=== PATIENT | female | born 1960 | race Caucasian/White ===

== ENCOUNTER → 2016-03-18 | Outpatient (CLI) | payer OTHER ==
--- NOTE | 2016-03-18 09:02 | DX ---
PA and Lateral Chest March 18, 2016 Indication: Shortness of breath and cough. Comparison: Two-view chest dated February 23, 2014. Findings: The lungs are clear with mild diffuse peribronchial thickening. No confluent airspace conso lidation, edema, or effusion. Smudgy sclerosis overlies the posterolateral left 5th rib on the PA vie w (new since February 2014). The heart size is normal. Impression: 1. Suspect subacute posterolateral left 5th rib fracture with healing callus. Recommend follow up lef t rib series including PA chest and oblique views and 6 weeks to exclude underlying pulmonary nodule. 2. Mild bronchitis. No pneumonia. Comment: The findings and recommendations were discussed with Dr. Karissa Browne at 8:55 a.m. on 2016.
== END ==
LOC: FIMAGING 07:58
PROVIDERS: ATTEND Emergency Medicine
DX: R93.8 Abnormal findings on diagnostic imaging of other specified body structures (principal); J40 Bronchitis, not specified as acute or chronic

== ENCOUNTER → 2016-05-23 | Outpatient (CLI) | payer OTHER | LOC: FIMAGING 19:52 | PROVIDERS: ATTEND Physician Assistant Medical | DX: R05 Cough (principal) ==

== ENCOUNTER → 2016-06-22 | Outpatient (CLI) | payer OTHER | LOC: FIMAGING 09:30 | PROVIDERS: ATTEND Orthopaedic Surgery | DX: S83.232A Complex tear of medial meniscus, current injury, left knee, initial encounter (principal); M94.262 Chondromalacia, left knee ==

== ENCOUNTER 2016-08-15 06:53 | Day surgery (SDC) | payer OTHER ==
[~2016-08-15 06:53] MED LIST: BUPIVACAINE/EPI 0.5% 30 ML SDV ONE
[2016-08-15] MEDS ORDERED: LIDOCAINE 1% 2 ML INJ ONE (06:58)
[2016-08-15] MEDS ORDERED: MIDAZOLAM 2 MG/2 ML VIAL ONE (07:09)
[2016-08-15] MEDS ORDERED: fentaNYL 100 MCG/2 ML INJ ONE (07:18)
[2016-08-15] MEDS ORDERED: PROPOFOL 200 MG/20 ML VIAL ONE (07:18)
[2016-08-15] MEDS ORDERED: METOCLOPRAMIDE 10 MG/2 ML VIAL ONE (07:19)
[2016-08-15] MEDS ORDERED: KETOROLAC 30 MG/1 ML SDV ONE (07:19)
[2016-08-15] MEDS ORDERED: DEXAMETHASONE 4 MG/ML VIAL ONE ×2 (07:19)
[2016-08-15] MEDS ORDERED: LIDOCAINE 2% 100 MG/5 ML SYR ONE (07:19)
[2016-08-15] MEDS ORDERED: ACETAMINOPHEN 500 MG TAB PO ONE (07:30)
[2016-08-15] MEDS ORDERED: CHLORHEXIDINE GLUC HIBICLENS 118 ML BTL TP ONE ×2 (07:30)
[2016-08-15] MEDS ORDERED: POVIDONE-IODINE 20 ML in SODIUM CL IRRIG SOLUTION 500 ML IRR ONE (07:30)
[2016-08-15] MEDS ORDERED: CLINDAMYCIN 900 MG/DEXTROSE 50 ML IV ONE (07:30)
[2016-08-15] MEDS ORDERED: LR 1,000 ML IV ONE (07:52)
[2016-08-15] MEDS ORDERED: LIDOCAINE 1% 5 ML SDV ID PRN (07:52)
[2016-08-15] MEDS ORDERED: HYDROmorphONE/DILAUDID 1 MG/ML SYR IVP PRN (08:33)
[2016-08-15] MEDS ORDERED: OXYCODONE/APAP 5/325 TAB PO PRN (08:34)
[2016-08-15] MEDS ORDERED: ASPIRIN EC 81 MG TAB PO SCH (09:00)
[2016-08-15] MEDS ORDERED: OXYCODONE/APAP 5/325 TAB ONE (09:01)
--- NOTE | 2016-08-15 12:08 | GOP ---
[f rep st] OPERATIVE REPORT DATE OF OPERATION: 08/15/2016 SURGEON: Azra Rivas MD ANESTHESIA: By LMA. PREOPERATIVE DIAGNOSIS: Left knee medial meniscal tear with osteoarthritis. POSTOPERATIVE DIAGNOSIS: Left knee medial meniscal tear with osteoarthritis with lateral meniscal t ear, loose body, grade IV chondral changes to the patella and grade III chondral changes to the troc hlea and to the medial femoral condyle. PROCEDURE PERFORMED: Left knee arthroscopy with partial medial, partial lateral meniscectomy, remov al of loose body and chondroplasty of the patellofemoral and medial compartments. FINDINGS: INDICATIONS: This is a 56-year-old female with increasing pain in the left knee. After removing se veral boxes and doing a great deal of work around the house, MRI exam revealed a medial meniscal tea r along with some osteoarthritic changes. She wishes to have surgery in order to resolve the proble m. DESCRIPTION OF PROCEDURE: Patient was brought to the operating room after the left side had been id entified as the correct side by the patient, nurse, and physician. Once in the operating room, she was placed under anesthesia using an LMA. Once asleep, tourniquet was placed around the upper porti on of the left thigh, and both legs placed in the appropriate leg grewal. The left lower extremity was then sterilely prepped and draped in usual fashion using GSI solution. Once prepped and draped, limb was exsanguinated and tourniquet inflated to 250 mmHg. Incision was made in the superomedial portion of the knee with an outflow trocar introduced without difficulty. A 2nd incision was made l ateral to the patellar tendon between the inferior pole of the patella and tibial plateau with the c amera introduced without difficulty. Inspection of the joint revealed grade III and IV chondral rebecca nges to the lateral portion of the patella with extensive grade III chondral changes noted to the tr ochlea. Further inspection revealed the ACL to be intact, but a calcified body tethered at the sonny chment of the ACL onto the tibia. Inspection of the medial compartment revealed tearing of the ante rior horn along with fraying of the body and posterior horn of the medial meniscus, especially the l ateral compartment along with grade III chondral changes noted of the medial femoral condyle. Insp ection of lateral compartment revealed fraying at the posterior horn root and body of the lateral me niscus. Therefore, a 3rd incision was made medial to the patellar tendon between the inferior pole of the patella and tibial plateau and alternating using a straight biter and a 4.0 mm smooth shaver was used to debride both tears of the medial meniscus and at the lateral meniscus. amoun t of synovium at the anterior portion of the knee. A grasper was used to remove the loose body that had been attached at the base of the ACL, and then the shaver was used to remove loose fragments ac ross from the medial femoral condyle, the trochlea and the patella. Once completed, all instruments were removed from the knee with 30 cc of Marcaine infused in the knee joint. The 3 portal sites we re closed using 3-0 nylon suture and a [id number] type stitch. The wounds were dressed with Xe roform, 4 x 4, and Kerlix. The tourniquet was deflated at 23 minutes. Leg was completely undraped in the operating room, taken out of its leg grewal, tourniquet removed from the thigh and an Velasquez wra p placed around the knee. The right leg was taken out of its leg grewal, she was placed supine, she was woken up, extubated, transferred onto a stretcher, and [facility] T[facility]QU[facility] TIME: 23 minutes. /[id number]/MODL
== END 2016-08-15 10:13 | disposition home or self-care (01) ==
LOC: FSGY 06:53
PROVIDERS: ATTEND Orthopaedic Surgery
PROC: 0SCD4ZZ Extirpation of Matter from Left Knee Joint, Percutaneous Endoscopic Approach (ICD-10-PCS; principal; 2016-08-15 07:15)
PROC: 0SBD4ZZ Excision of Left Knee Joint, Percutaneous Endoscopic Approach (ICD-10-PCS; principal; 2016-08-15 07:15)
DX: S83.242A Other tear of medial meniscus, current injury, left knee, initial encounter (principal); S83.282A Other tear of lateral meniscus, current injury, left knee, initial encounter; M17.12 Unilateral primary osteoarthritis, left knee; M23.42 Loose body in knee, left knee; I10 Essential (primary) hypertension; I25.10 Atherosclerotic heart disease of native coronary artery without angina pectoris; Y93.E6 Activity, residential relocation; Y92.019 Unspecified place in single-family (private) house as the place of occurrence of the external cause; E66.01 Morbid (severe) obesity due to excess calories; Z68.33 Body mass index [BMI] 33.0-33.9, adult; Z96.643 Presence of artificial hip joint, bilateral
CPT/HCPCS: J1100; J1885; J2001; J2250; J2704; J2765; J3010

== ENCOUNTER 2016-08-28 23:57 | Emergency (ER) | payer OTHER ==
[2016-08-29 00:04] VITALS: BP 154/88; PULSE 76; RESP 15; TEMP 98.1; O2SAT 95
[2016-08-29] MEDS ORDERED: RABIES VACC, HUMAN DIPLOID/PF 2.5 UNIT VIAL (RABAVERT) IM ONE (00:12)
[2016-08-29] MEDS ORDERED: TDAP ADULT 0.5 ML INJ (BOOSTRIX) IM ONE (00:12)
[2016-08-29] MEDS ORDERED: RABIES IMMUNE GLOBULIN 300 UNIT/2 ML VIAL IM ONE ×2 (00:12→00:30)
--- NOTE | 2016-08-29 00:12 | EDPHY ---
H & P Stated Complaint: bat in home, unknown time, no bites HPI/ROS: HPI CHIEF COMPLAINT: Bat exposure, possible bat bite. HISTORY OF PRESENT ILLNESS: This patient very pleasant 56-year-old female, she presents emergency room by private vehicle as she states there was a bat in her house. She unclear if she had a bat bite. She is here for her tetanus shot, rabies vaccination and rabies immunoglobulin. Reason he vomited 20 units/ kilogram. 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 Family History: Noncontributory ROS REVIEW OF SYSTEMS: A comprehensive 10 point review of systems is otherwise negative aside from elements mentioned in the history of present illness. Exam Constitutional appears well nontoxic triage nursing summary reviewed, vital signs reviewed, awake/alert. Eyes normal conjunctivae and sclera, EOMI, PERRLA. HENT normal inspection, atraumatic, moist mucus membranes, no epistaxis, neck supple/ no meningismus, no raccoon eyes. Respiratory clear to auscultation bilaterally, normal breath sounds, no respiratory distress, no wheezing. Cardiovascular rate normal, regular rhythm, no murmur, no edema, distal pulses normal. Gastrointestinal soft, non-tender, no rebound, no guarding, normal bowel sounds, no distension, no pulsatile mass. Genitourinary no CVA tenderness. Musculoskeletal no midline vertebral tenderness, full range of motion, no calf swelling, no tenderness of extremities, no meningismus, good pulses, neurovascularly intact. Skin pink, warm, & dry, no rash, skin atraumatic. Neurologic awake, alert and oriented x 3, AAOx3, moves all 4 extremities equally, motor intact, sensory intact, CN II-XII intact, normal cerebellar, normal vision, normal speech. Psychiatric normal mood/affect. Heme/Lymph/Immune no lymphadenopathy. Differential Diagnosis: Includes but is not limited to in a particular order need for tetanus shot, need for rabies vaccination, need for rabies immunoglobulin. Back exposure Medical Decision Making: Plan for this patient update her tetanus, up-to-date on rabies, and rabies immunoglobulin. Re-evaluation: [facility] need [facility] for rabies immunoglobulin series. Source: Patient - Personal History LMP (Females 10-55): Hysterectomy Current Tetanus/Diphtheria Vaccine: No Tetanus Vaccine Date: 1998 - Medical/Surgical History Hx Asthma: No Hx Chronic Respiratory Disease: No Hx Diabetes: No Hx Cardiac Disease: No Hx Renal Disease: No Hx Cirrhosis: No Hx Alcoholism: No Hx HIV/AIDS: No Hx Splenectomy or Spleen Trauma: No Other PMH: orif of acetabulum, pelvis, plated and total hip on right. cervical ca. appy. depression. L menisectomy. immunized for TB. hysterectomy - Social History Smoking Status: Never smoked Constitutional: Initial Vital Signs Temperature (C) 36.7 C 08/29/16 00:00 Heart Rate 76 08/29/16 00:00 Respiratory Rate 15 08/29/16 00:00 Blood Pressure 154/88 H 08/29/16 00:00 O2 Sat (%) 95 08/29/16 00:00 O2 Delivery Mode Room Air Allergies/Adverse Reactions: Cephalosporins Allergy (Verified 08/09/16 12:27) Hives erythromycin base [Erythromycin Base] Allergy (Verified 08/09/16 12:27) Rash levofloxacin [From Levaquin] Allergy (Verified 08/09/16 12:27) Other-Enter Comments Penicillins Allergy (Verified 08/09/16 12:27) Rash Home Medications: Medication Instructions Recorded Ondansetron HCl [Zofran] 08/19/14 Valsartan [Diovan (*)] 08/19/14 traMADol [Ultram 50 mg (*)] 08/19/14 CeleBREX 08/09/16 IBUPROFEN 08/09/16 Temazepam 08/09/16 Ventolin Hfa Inhaler 08/09/16 Wellbutrin Xl 08/09/16 Oxycodone HCl 08/28/16 Departure - Departure Disposition: Home, Routine, Self-Care Clinical Impression: Exposure to bat without known bite Condition: Good Instructions: Rabies Vaccine (By injection), Rabies Immune Globulin (By injection), Rabies (ED), Tetanus (ED) Additional Instructions: 1. Please call Infectious Disease tomorrow to get the rest of her rabies immunoglobulin shot set up. Referrals: Alisson Grubbs PA [Primary Care Provider] - As per Instructions Enmanuel Grande MD [Medical Doctor] - As per Instructions [facility] (ED,. [Edm Groups for Call Sched] - As per Instructions
== END 2016-08-29 01:09 | disposition home or self-care (01) ==
DX: Z20.3 Contact with and (suspected) exposure to rabies (principal); I10 Essential (primary) hypertension; Z23 Encounter for immunization; Z85.41 Personal history of malignant neoplasm of cervix uteri

== ENCOUNTER → 2016-12-15 | Outpatient (CLI) | payer OTHER | LOC: FIMAGING 07:56 | PROVIDERS: ATTEND Orthopaedic Surgery | DX: M22.41 Chondromalacia patellae, right knee (principal) ==

== ENCOUNTER 2017-02-18 15:53 | Emergency (ER) | payer OTHER ==
[2017-02-18 16:03] VITALS: BP 142/104; PULSE 101; RESP 18; TEMP 97.7; O2SAT 93
[2017-02-18] MEDS ORDERED: FLUORESCEIN SODIUM 1 MG STRIP OP ONE (16:04)
[2017-02-18] MEDS ORDERED: PROPARACAINE 0.5% 15 ML OPHT DROP ONE (16:04)
--- NOTE | 2017-02-18 16:32 | EDPHY ---
H & P Time Seen by Provider: 02/18/17 16:02 HPI/ROS: 57-year-old female presents complaining of right eye irritation following wearing a new contact, also has had some rubbing of her eye. Concerned that she may have a corneal abrasion. No fevers or chills no purulent discharge from eye. Review of systems As per HPI General no fever no chills no weakness HEENT positive eye pain no eye discharge. No eye redness, no sore throat Respiratory no cough, no shortness of breath Cardiac no chest pain, no peripheral edema GI no abdominal pain, no diarrhea, no constipation, no nausea, no vomiting no flank pain, no hematuria, no dysuria Musculoskeletal no myalgias, no joint pain Heme no easy bruising, no easy bleeding Endo no polyuria, no polydipsia Skin no rashes, no pruritus Neuro no syncope, no dizziness, no headaches Past Medical/Surgical History: Appendectomy Hysterectomy Left meniscus repair ORIF MICHAEL 2004 ORIF pelvis acetabulum Hypertension Pneumonia x3 Social History: Denies alcohol or drug use Smoking Status: Never smoked Physical Exam: 57-year-old female alert and oriented no acute distress nontoxic appearance afebrile Atraumatic normocephalic No respiratory distress Right eye Extraocular muscle intact, anicteric No pooling of fluorescein Minimal erythema Fluorescein uptake at 3:00 p.m. and 9:00 p.m. at corneal edges, small No visible foreign body Anterior chamber intact Constitutional: Initial Vital Signs Temperature (C) 36.5 C 02/18/17 16:01 Heart Rate 101 H 02/18/17 16:01 Respiratory Rate 18 02/18/17 16:01 Blood Pressure 142/104 H 02/18/17 16:01 O2 Sat (%) 93 02/18/17 16:01 O2 Delivery Mode Room Air Allergies/Adverse Reactions: cefepime Allergy (Verified 02/18/17 16:00) Cephalosporins Allergy (Verified 02/18/17 15:59) Hives erythromycin base [Erythromycin Base] Allergy (Verified 02/18/17 15:59) Rash levofloxacin [From Levaquin] Allergy (Verified 02/18/17 15:59) Other-Enter Comments Penicillins Allergy (Verified 02/18/17 15:59) Rash Home Medications: Medication Instructions Recorded Ondansetron HCl [Zofran] 08/19/14 Valsartan [Diovan (*)] 08/19/14 traMADol [Ultram 50 mg (*)] 08/19/14 CeleBREX 08/09/16 IBUPROFEN 08/09/16 Temazepam 08/09/16 Ventolin Hfa Inhaler 08/09/16 Wellbutrin Xl 08/09/16 Oxycodone HCl 08/28/16 Tobramycin 0.3% Soln Prepack 1 btl TAKEHOME QID 5 Days opht.btl 02/18/17 [Tobrex 0.3% Opht Drops Prepack] Medical Decision Making ED Course/Re-evaluation: Patient seen and evaluated for right eye pain after wearing contact Impression Small right corneal abrasion Plan Tobramycin eyedrops Follow-up with Ophthalmology if not improving Departure - Departure Disposition: Home, Routine, Self-Care Clinical Impression: Corneal abrasion due to contact lens Condition: Good Instructions: Corneal Abrasion (ED) Referrals: NONE *PRIMARY CARE P,. [Primary Care Provider] - As per Instructions Prescriptions: Tobramycin 0.3% Soln Prepack [Tobrex 0.3% Opht Drops Prepack] 1 btl TAKEHOME QID 5 Days opht.btl
== END 2017-02-18 16:40 | disposition home or self-care (01) ==
LOC: CED 15:53
DX: H18.821 Corneal disorder due to contact lens, right eye (principal); I10 Essential (primary) hypertension

== ENCOUNTER → 2018-06-26 | Outpatient (CLI) | payer OTHER | LOC: CIMAGING 19:25 | PROVIDERS: ATTEND Physician Assistant Medical | DX: M43.14 Spondylolisthesis, thoracic region (principal); M43.12 Spondylolisthesis, cervical region | CPT/HCPCS: 72040-PO; 72072-PO ==

== ENCOUNTER → 2018-08-28 | Outpatient (CLI) | payer OTHER | LOC: FIMAGING 06:46 ==